=== PATIENT | male | born 1990 | race Caucasian/White ===

== ENCOUNTER 2017-06-09 16:27 | Emergency (ER) | payer OTHER ==
[~2017-06-09] VITALS: Ht 167.6 cm; Wt 83.9 kg
[2017-06-09 16:29] VITALS: BP 146/100
[2017-06-09] MEDS ORDERED: NORCO 5-325 TA1 EACH PO (17:12)
[2017-06-09] MEDS ORDERED: BACTRIM DS TAB1 EACH PO (17:13)
== END 2017-06-09 17:51 | disposition home or self-care (01) ==
LOC: ER 16:27
DX: N61.0 Mastitis without abscess (principal)